=== PATIENT | female | born 1960 | race Caucasian/White ===

== ENCOUNTER 2017-05-08 12:38 | Emergency (ER) | payer BC ==
[2017-05-08 12:48] VITALS: BP 172/103
[2017-05-08] MEDS ORDERED: ALPRAZolam 0.25 MG TABLET ONE (13:10)
[2017-05-08] MEDS ORDERED: ALPRAZolam 0.5 MG TABLET PO ONE (13:15)
[2017-05-08] MEDS ORDERED: ALPRAZolam 0.25 MG TABLET PO ONE (13:30)
[2017-05-08] MEDS ORDERED: MUPI15CR TP (13:54)
[2017-05-08] MEDS ORDERED: CLIN300C8 PO (13:54)
[2017-05-08] MEDS ORDERED: ALPR0.25 PO (13:54)
--- NOTE | 2017-05-08 13:58 | PHYS DOC ---
General Chief Complaint: MUSCLE SPASM/CRAMP Stated Complaint: FACE TINGLY,ARM/HANDS NUMB Time Seen by MD: 12:57 Source: patient Exam Limitations: no limitations Problems: History of Present Illness Initial Comments Patient is a 56-year-old female brought to the ED by spouse for anxiety. Patient states that she's been feeling increasingly anxious "ready to jump out of my skin." She denies known new stressors but states that for the past few hours she's had tingling around her mouth and lips as well as bilateral hands. She states that her fingers have been feeling tight "they keep wanting to make a fist." She denies any headache vision changes or difficulty swallowing neck pain or leg symptoms. No chest pain or trouble breathing. Patient also states that she's had a rash for about 2 weeks. She states that it starts off as little pimples which she pops and they become scabbed. She has some across the front and back of her torso only. She denies fever chills sweats or body aches or known prior MRSA infection. After thoroughly discussing her symptoms with her it appears that she is very anxious and she is agreeable of a trial of by mouth Xanax. Blood pressure elevated 172/103 she is asymptomatic with it and is likely secondary to her anxiety. Denies suicidal or homicidal ideation or prior mental health evaluation or diagnosis Timing/Duration: other Severity: severe Modifying Factors: improves with other Associated Symptoms: rash, other Allergies: Coded Allergies: No Known Drug Allergies (Unverified , 05/08/17) Past Medical History Medical History: hypertension Surgical History: noncontributory Psychosocial History: anxiety Social History Smoker: cigarettes Alcohol: none Drugs: none Review of Systems Constitutional: denies chills, denies diaphoresis, denies fever, denies malaise Respiratory: denies cough, denies shortness of breath, denies wheezing Cardiovascular: denies chest pain, denies palpitations, denies syncope Gastrointestinal: denies abdominal pain, denies diarrhea, denies nausea, denies vomiting Musculoskeletal: denies back pain, denies joint swelling, denies neck pain Skin: see HPI Psychiatric/Neurological: see HPI Physical Exam General Appearance: WD/WN, moderate distress (very anxious) Eyes: bilateral eye normal inspection, bilateral eye PERRL, bilateral eye EOMI Ear, Nose, Throat: hearing grossly normal, normal ENT inspection, normal pharynx Neck: non-tender, supple Respiratory: normal breath sounds, no respiratory distress Cardiovascular: normal peripheral pulses, regular rate, rhythm Gastrointestinal: non tender, soft Back: no CVA tenderness, no vertebral tenderness Extremities: normal range of motion, non-tender, normal inspection 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 She is requesting discharge. Departure Time of Disposition: 13:55 Disposition: 01 HOME, SELF-CARE Diagnosis: panic attack, rash likely MRSA Condition: IMPROVED Patient Instructions: Anxiety and Panic Attacks, [id number], MRSA Overview Additional Instructions: Please review the patient education materials given by ED staff. [id number] Benadryl both orally and topically as needed for rash symptoms. Remain in a cool temperature environment for optimal symptom control. Prescription: Xanax 0.25 mg quantity 10, clindamycin, Bactroban ointment Follow-up with your doctor in 2-3 days for recheck and further mental health evaluation and treatment as indicated. Return to ED with new or changing symptoms. NAHEED NAVARRETE DO May 08, 2017 13:58
== END 2017-05-08 14:05 | disposition home or self-care (01) ==
LOC: ER 12:38
DX: F41.0 Panic disorder [episodic paroxysmal anxiety] (principal); I10 Essential (primary) hypertension; R21 Rash and other nonspecific skin eruption; F17.210 Nicotine dependence, cigarettes, uncomplicated
CPT/HCPCS: 99284

== ENCOUNTER 2017-05-13 12:09 | Inpatient (IN) | payer BC ==
[~2017-05-13] VITALS: Ht 167.6 cm; Wt 55.3 kg
[~2017-05-13 12:09] MED LIST: ALPR0.25 PO; CLIN300C8 PO; MUPI15CR TP
[2017-05-13] MEDS ORDERED: LORazepam 2 MG/ML VIAL IV ONE (12:30)
[2017-05-13] MEDS ORDERED: IV NORMAL SALINE 1,000ML 1,000 ML IV SCH (12:30)
[2017-05-13] MEDS ORDERED: 0.9 % SODIUM CHLORIDE 10 ML DISP.SYRIN. IV PRN (12:30)
[2017-05-13] MEDS ORDERED: ASPIRIN 81 MG TAB.CHEW PO ONE (12:30)
--- NOTE | 2017-05-13 12:35 | PHYS DOC ---
Past History Past Medical History: Anxiety, Hypertension, Other Past Surgical History: Other Smoking: Cigarettes Alcohol Use: Occasionally Drug Use: None Adult General Chief Complaint Chief Complaint: MULTIPLE COMPLAINTS [facility] HPI Patient is a pleasant 56-year-old female smoker who presents with tightness across her chest and tingling in her mouth and carpopedal spasms that began at 10:45 AM. Patient was seen here on Wednesday for similar presentation of her anxiety and panic attack. Today's attack is no different she has cramping in her hands with carpal pedal spasms bilaterally some fullness in the center of her abdomen over the xiphoid process with tightness across her chest. Patient also admits to tingling to her face when she presented she cannot feel her lips she denies any focal neurologic deficit or weakness, problems with speech, or thinking. She denies any problems with vision or other strokelike symptoms. Patient denies any headache, trauma, new anxieties while at work. Patient has no significant pain with the symptoms just cramping. Review of Systems Review of Systems Constitutional: Denies fever or chills [] Eyes: Denies change in visual acuity, redness, or eye pain [] HENT: Denies nasal congestion or sore throat [] Respiratory: Denies cough mild tightness across the chest with a cramping Cardiovascular: No additional information not addressed in HPI [] GI: Positive for abdominal cramping in the xiphoid region with no nausea no vomiting or diarrhea no constipation : Denies dysuria or hematuria [] Musculoskeletal: Denies back pain or joint pain [] Integument: Denies rash or skin lesions [] Neurologic: Denies headache, patient significant cramping and tingling to her hands and feet bilaterally as well as to her face. Endocrine: Denies polyuria or polydipsia [] All other systems were reviewed and found to be within normal limits, except as documented in this note. Allergies Allergies Allergies Coded Allergies Type Severity Reaction Last Updated Verified No Known Drug Allergies 05/08/17 No Physical Exam Physical Exam Of the vital signs recorded on the chart patient noted to be hypertensive Constitutional: Well developed, well nourished, noted to be very anxious, non- toxic appearance. [] HENT: Normocephalic, atraumatic, bilateral external ears normal, oropharynx dry , no oral exudates, nose normal. [] Eyes: PERRLA, EOMI, conjunctiva normal, no discharge. [] Neck: Normal range of motion, no tenderness, supple, no stridor. [] Cardiovascular:Heart rate regular rhythm, no murmur [] Lungs & Thorax: Bilateral breath sounds clear to auscultation [] Abdomen: Bowel sounds normal, soft, no tenderness, no masses, no pulsatile masses. [] Skin: Warm, dry, no erythema, no rash. [] Back: No tenderness, no CVA tenderness. [] Extremities: She demonstrates carpopedal spasm of both hands bilaterally. She has sensation is decreased over light touch and proprioception of the hands and face/ear on the lips and mouth. Neurologic: Alert and oriented X 3, normal motor function, no focal deficits noted. [] Psychologic: Patient is not is anxious her judgment is normal and mood is intact EKG EKG []EKG timed 12:30 PM 05/13/2007 demonstrates sinus rhythm at 94, CT interval 136 which is normal, QRS width of 66 which is narrow, QTC of 43 which is normal. Patient has no ST segment or T-wave changes consistent with acute coronary ischemia Radiology/Procedures Radiology/Procedures [] Course & Med Decision Making Course & Med Decision Making Pertinent Labs and Imaging studies reviewed. (See chart for details) []Patient presents with anxiety and carpal pedal spasms and facial numbness and tingling consistent with a hyperventilation syndrome. She was seen here on Wednesday with similar symptoms. She denies any chest pain at this time his chest tightness and EKG, chest x-ray and appropriate lab work be completed. Patient's EKG is unremarkable read by me demonstrates no acute abnormalities. Patient's CBC unremarkable for signs of anemia patient does have a calcium level of 6.1 and an albumin level of 3.2 when corrected is only 6.7. Patient also has an ionized calcium 0.7 and a magnesium level 0.2 at this point patient will need replacement of both calcium and magnesium to prevent further tetany and dysrhythmias and carpal pedal spasm. I've given her a gram of calcium here IV and 4 g of IV mag or slow push. She will need to have her calcium corrected a total of several 6-12 hours. My goal is to admit this patient to the hospital under telemetry conditions to replace the magnesium and calcium until the normal levels. Manager Latin note: Arpit Manager Latin called at of the service service called at 1:32 PM Consult called back at 1:32 PM Discussed the case I presented and they agreed with admission. Time of acceptance 1:32 PM "I have assessed this patient clinically and believe that their condition requires an admission to the hospital. After consulting the admitting physician about this case, they have asked that I admit this patient to their service as an inpatient based on the clinical presentation and my impression." I spent approximately 45-50 minutes working and engaged directly in the patient care providing critical care evaluation this includes but not limited to time spent engaged in work directly related to the individual patients care. I spent time at the bedside, reviewing test results, discussing the case with staff, documenting the medical record and time spent with EMS discussing specific treatment issues when the patient presented and during his evaluation. Dragon Disclaimer Dragon Disclaimer This electronic medical record was generated, in whole or in part, using a voice recognition dictation system. Departure Departure: Impression: Primary Impression: Hypocalcemia Additional Impression: Hypomagnesemia Disposition: ADMITTED INPATIENT Admitting Physician: Kandi Munson Condition: GUARDED Referrals: NON,STAFF (PCP) Problem Qualifiers GINGER DUEÑAS MD May 13, 2017 12:35
[2017-05-13 12:50] LABS: BASO # 0.1 x10^3/uL (0.0-0.2); BASO % 1 % (0-3); EOS # 0.2 x10^3/uL (0.0-0.7); EOS % 3 % (0-3); HEMATOCRIT 40.7 % (36.0-47.0); HEMOGLOBIN 13.5 g/dL (12.0-15.5); LYMPH # 1.9 x10^3/uL (1.0-4.8); LYMPH % 26 % (24-48); MEAN CORPUSCULAR HEMOGLOBIN 28 pg (25-35); MEAN CORPUSCULAR HGB CONC 33 g/dL (31-37); MEAN CORPUSCULAR VOLUME 85 fL (79-100); MONO # 0.5 x10^3/uL (0.0-1.1); MONO % 7 % (0-9); NEUT # 4.6 x10^3uL (1.8-7.7); NEUT % 63 % (31-73); PLATELET COUNT 274 x10^3/uL (140-400); RED BLOOD COUNT 4.81 x10^6/uL (3.50-5.40); RED CELL DISTRIBUTION WIDTH 17.6 % (11.5-14.5); WHITE BLOOD COUNT 7.3 x10^3/uL (4.0-11.0)
[2017-05-13 13:07] LABS: ALBUMIN 3.2 g/dL (3.4-5.0); CALCIUM 6.1 mg/dL (8.5-10.1); DIRECT BILIRUBIN 0.1 mg/dL (0.0-0.2); GFR 57.4; MAGNESIUM 0.2 mg/dL (1.8-2.4); POTASSIUM 3.3 mmol/L (3.5-5.1); TOTAL BILIRUBIN 0.4 mg/dL (0.2-1.0)
[2017-05-13] MEDS ORDERED: ACETAMINOPHEN 325 MG TABLET PO PRN (13:30)
[2017-05-13] MEDS ORDERED: CALCIUM CHLORIDE 1,000 MG in IV NORMAL SALINE 50ML 50 ML IV ONE (13:30)
[2017-05-13] MEDS ORDERED: ONDANSETRON PF 4 MG/2 ML VIAL. IV PRN (13:30)
[2017-05-13] MEDS ORDERED: MAGNESIUM SULFATE 2GM 50 ML IV ONE ×2 (13:45)
--- NOTE | 2017-05-13 13:54 | RAD ---
Portable chest, 05/13/2017: History: Shortness of breath The heart size and pulmonary vascularity are normal. No pulmonary infiltrates are seen. There is no evidence of pleural fluid. IMPRESSION: No acute cardiopulmonary abnormality is detected.
--- NOTE | 2017-05-13 13:59 | EKG ---
[address] [address] Test Date: 2017-05-13 Test Time: 12:30:35 Pat Name: KRYSTEN ALEMAN Department: Room: Gender: F Relationship Associate: PARTH : 1960 Requested By: GINGER DUEÑAS Order Number: [id number] Reading MD: Aidan Hdz Measurements Intervals [place] Rate: 94 P: 42 FL: 136 QRS: 52 QRSD: 66 T: 56 QT: 354 QTc: 443 Interpretive Statements SINUS RHYTHM NONSPECIFIC ST-T WAVE CHANGES. RI6.01 No previous ECG available for comparison Electronically Signed On 05-17-2017 14:47:19 RHEOLOGIST by Aidan Hdz
[2017-05-13 14:32] VITALS: BP 157/84
[2017-05-13] MEDS ORDERED: LOSA100T6 PO (16:13)
[2017-05-13] MEDS ORDERED: ALPR0.25 PO (16:13)
[2017-05-13] MEDS ORDERED: MUPI15CR TP (16:13)
[2017-05-13] MEDS ORDERED: CLIN300C8 PO (16:13)
[2017-05-13] MEDS ORDERED: CLON0.1T PO (16:13)
[2017-05-13 18:12] VITALS: BP 150/80
[2017-05-13 19:24] LABS: CALCIUM 6.5 mg/dL (8.5-10.1); CREATININE 0.9 mg/dL (0.6-1.0); GFR 64.8; MAGNESIUM 1.9 mg/dL (1.8-2.4)
[2017-05-13 19:26] LABS: POTASSIUM 2.8 mmol/L (3.5-5.1)
[2017-05-13 19:45] VITALS: BP 148/89
[2017-05-13] MEDS: POTASSIUM CHLORIDE 20 MEQ/15 ML ORAL LIQUID. PO SCH ×2 (20:00→23:45)
[2017-05-13] MEDS: ALPRAZolam 0.25 MG TABLET PO SCH (20:48)
[2017-05-13] MEDS ORDERED: cloNIDine HCL 0.1 MG TABLET PO SCH (21:00)
[2017-05-13] MEDS: MUPIROCIN 2% TOPICAL OINTMENT 22GM TUBE. TP SCH (21:21)
[2017-05-13 23:52] VITALS: BP 136/84
[2017-05-14 07:01] LABS: BASO # 0.1 x10^3/uL (0.0-0.2); BASO % 1 % (0-3); EOS # 0.4 x10^3/uL (0.0-0.7); EOS % 7 % (0-3); LYMPH # 1.6 x10^3/uL (1.0-4.8); LYMPH % 27 % (24-48); MEAN CORPUSCULAR HEMOGLOBIN 28 pg (25-35); MEAN CORPUSCULAR HGB CONC 33 g/dL (31-37); MEAN CORPUSCULAR VOLUME 85 fL (79-100); MONO # 0.3 x10^3/uL (0.0-1.1); MONO % 6 % (0-9); NEUT # 3.4 x10^3uL (1.8-7.7); NEUT % 59 % (31-73); PLATELET COUNT 216 x10^3/uL (140-400); RED BLOOD COUNT 4.23 x10^6/uL (3.50-5.40); RED CELL DISTRIBUTION WIDTH 17.8 % (11.5-14.5); WHITE BLOOD COUNT 5.7 x10^3/uL (4.0-11.0)
[2017-05-14 07:07] LABS: ALBUMIN 2.7 g/dL (3.4-5.0); ALBUMIN/GLOBULIN RATIO 0.8 (1.0-1.7); CALCIUM 6.4 mg/dL (8.5-10.1); CREATININE 0.7 mg/dL (0.6-1.0); GFR 86.6; POTASSIUM 3.4 mmol/L (3.5-5.1); TOTAL BILIRUBIN 0.6 mg/dL (0.2-1.0); TOTAL PROTEIN 5.9 g/dL (6.4-8.2)
[2017-05-14] MEDS ORDERED: diphenhydrAMINE HCL 25 MG CAPSULE PO PRN (08:00)
[2017-05-14] MEDS ORDERED: MAGNESIUM SULFATE 2GM 50 ML IV ONE (08:15)
[2017-05-14] MEDS: ALPRAZolam 0.25 MG TABLET PO SCH (08:50)
[2017-05-14] MEDS: MUPIROCIN 2% TOPICAL OINTMENT 22GM TUBE. TP SCH (08:57)
[2017-05-14] MEDS ORDERED: LOSARTAN 50 MG TABLET. PO SCH (09:00)
[2017-05-14] MEDS ORDERED: POTASSIUM CHLORIDE 20 MEQ TABLET.ER. PO ONE (09:15)
[2017-05-14 10:19] VITALS: BP 144/89
[2017-05-14] MEDS ORDERED: MAGN400T3 PO (12:36)
--- NOTE | 2017-05-14 13:50 | SSS ---
ADMIT DATE: 05/14/2017 DATE OF DISCHARGE: 05/13/2017 Stay was greater than 8 hours and less than 24. Care was given by myself. DISCHARGE DIAGNOSES: 1. Severe hypomagnesemia, questionable etiology, severe. 2. Severe hypocalcemia. 3. Hypokalemia. 4. Hypertension. 5. Abdominal folliculitis. 6. Chronic diarrhea. 7. Tobacco use disorder. 8. History of heavy beer drinking prior to one month ago, has cut down. HOSPITAL COURSE: This is a 56-year-old female who came to the hospital. This was a second trip having been to the hospital last Wednesday with the same complaints of severe cramping and twitching. At that time, she was diagnosed with a skin rash and prescribed Cleocin and Bactroban. Blood work was not got done. The patient presented to the ER and was found to have a magnesium of 0.2 and very low calcium as well. Also symptomatic as far as hands cramping and n legs cramping and face twitching. The patient reports a chronic diarrhea and chronic night sweats over the last 4 years. MEDICATIONS: Reviewed and are available on the MAR. ALLERGIES: None. HABITS: The patient smokes about 10 cigarettes a day. Prior to about a month ago, she drank about 6 beers a day, but has been still having a couple of beers daily. PAST SURGICAL HISTORY: Breast augmentation. REVIEW OF SYSTEMS: Denies weight loss. Positive for night sweats. Current positive for cramping. Positive for current rash. No shortness of breath, no chest pain. No thyroid issues. Positive for chronic diarrhea. OBJECTIVE: GENERAL: Blood pressure is 144/89, temperature 97.4, respirations 20, pulse 67, pulse ox 98% on room air. Height 66 inches, weight 122 pounds. GENERAL: Pleasant female, in no acute distress. HEENT: Her hearing is normal. Her eyes are clear. Nose was patent. Throat was clear. Tongue was moist, midline. NECK: Supple, without adenopathy. LUNGS: Clear to auscultation. CARDIOVASCULAR: Regular rhythm and rate without murmur. ABDOMEN: Soft, nontender to palpation. EXTREMITIES: Without edema. She does have a little bit of calf tenderness with flexing of the feet. There is no gross cramping currently. NEUROLOGIC: She is intact. No tremors noted. SKIN: Resolving crusted follicular type lesions on the abdomen and back, erythematous maculopapular lesions. LABORATORY DATA: CBC is normal. Admission potassium was 3.3, then decreased to 2.8. Her calcium was 6.1, magnesium was 0.2. Troponin 0.017. Also albumin was 2.7. Magnesium increased of 1.5 this morning and potassium 3.4. PLAN: The patient needs to have a parathyroid hormone done as an outpatient. Also repeat labs on Wednesday . Sent her home on a magnesium supplement, to get a vitamin D and calcium supplement as well, increase her dairy intake. I did also review her labs from her doctor's office. At that time, the calcium was done, was normal. There was no magnesium done. Typed written instructions were given. She may continue with the Cleocin and the Bactroban for the rash. CHINEDU SMITH DO DR: JEANETTE/elisabeth JOB#: [id number] / [id number] [facility], Niki Thrasher, Registered Nurse
[2017-05-14 14:11] LABS: FREE T4 1.04 ng/dL (0.76-1.46); THYROID STIM HORMONE (TSH) 2.013 uIU/mL (0.358-3.740)
[2017-05-14 15:11] LABS: CALCIUM PTH 5.8 mg/dL (8.7-10.2); PTH INTACT 27 pg/mL (15-65)
== END 2017-05-14 13:45 | disposition home or self-care (01) | DRG 641 ==
LOC: ER 12:09 → 1 SOUTH 14:09
PROVIDERS: ADMIT Family Medicine; ATTEND Family Medicine
DX: E83.42 Hypomagnesemia (principal); E87.6 Hypokalemia; E83.51 Hypocalcemia; I10 Essential (primary) hypertension; L73.8 Other specified follicular disorders; F17.210 Nicotine dependence, cigarettes, uncomplicated; F41.9 Anxiety disorder, unspecified; K52.9 Noninfective gastroenteritis and colitis, unspecified; R61 Generalized hyperhidrosis; R21 Rash and other nonspecific skin eruption; Z79.899 Other long term (current) drug therapy
CPT/HCPCS: 36415; 71045; 80048; 80053; 80076; 82306; 82310; 83735; 83880; 83970; 84100; 84439; 84443; 84481; 84484; 85025; 93005; 99406; G0480; J2060; J3475; Q0163; J7030